=== PATIENT | male | born 1965 | race Caucasian/White ===

== ENCOUNTER 2020-06-20 05:38 | Emergency (ER) | payer OTHER ==
[~2020-06-20] VITALS: Ht 180.3 cm; Wt 99.8 kg
[~2020-06-20 05:38] MED LIST: ALPRAZOLAM0.5 MG PO; CELEXA40 MG PO; CLONAZEPAM1 MG PO; CYCLOBENZAPRINE10 MG PO; FLUOXETINE HCL10 MG PO; GABAPENTIN300 MG PO; METFORMIN HCL500 MG PO; NORCO 5-325 TA1 EACH PO; OXYCODONE HCL5 MG PO; TUSSIN DM SYRU120 ML PO; ZITHROMAX250 MG PO
[2020-06-20] MEDS ORDERED: CLONAZEPAM2 MG GT (05:58)
[2020-06-20] MEDS ORDERED: ALPRAZOLAM0.5 MG PO (05:59)
== END 2020-06-20 08:42 | disposition home or self-care (01) ==
LOC: ED 05:38
DX: T14.8XXA Other injury of unspecified body region, initial encounter (principal); E11.65 Type 2 diabetes mellitus with hyperglycemia; F17.200 Nicotine dependence, unspecified, uncomplicated; Z88.8 Allergy status to other drugs, medicaments and biological substances; Z79.899 Other long term (current) drug therapy; V59.9XXA Occupant (driver) (passenger) of pick-up truck or van injured in unspecified traffic accident, initial encounter
CPT/HCPCS: 70450; 71045; 71260; 72125; 73110; 74177; 80053; 81001; 82150; 82550; 83690; 85025; 86850; 86900; 86901; 96375; 99284-25; J1170; J2405; Q9967

== ENCOUNTER 2021-08-29 13:44 | Emergency (ER) | payer OTHER ==
[~2021-08-29] VITALS: Ht 180.3 cm; Wt 102.8 kg
[~2021-08-29 13:44] MED LIST changes: +CLONAZEPAM2 MG GT
--- OUTSIDE RECORDS SUMMARY | 2021-08-29 13:46 | XMS ---
PreManage Notification: VIDAL BROWNE Security Attending Ambulatory Care Events No recent Security Events currently on file CRITERIA MET - PDMP CARE PROVIDERS [facility] Current PHONE: Unknown Esau has no Care Guidelines for this patient. [facility] VISIT COUNT (12 MO.) 1 [facility] [place] TOTAL 1 NOTE: Visits indicate total known visits. ED/UCC VISIT TRACKING (12 MO.) 08/29/2021 13:45 [facility] OR TYPE: Emergency COMPLAINT: - BLOOD SUGAR PROBLEMS INPATIENT VISIT TRACKING (12 MO.) No inpatient visits to display in this time frame [email or web address]
[2021-08-29] MEDS ORDERED: TRAZODONE HCL50 MG PO (14:09)
--- NOTE | 2021-09-01 13:39 | EKG ---
[facility] [address] [place] [address] Signed Normal sinus rhythm Normal ECG When compared with ECG of 30-JUL-2016 09:35, No significant change was found Confirmed by LESLYE GARCIAS MD ([id number] on 09/01/2021 1:39:13 PM Electronically Signed By: LESLYE GARCIAS MD 09/01/21 1339 PATIENT NAME: VIDAL BROWNE Electrocardiogram DATE OF : 65 PHYSICIAN: LESLYE GARCIAS MD REPORT #: [id number] REPORT IS CONFIDENTIAL AND NOT TO BE RELEASED WITHOUT AUTHORIZATION
== END 2021-08-29 16:06 | disposition home or self-care (01) ==
LOC: ED 13:44
DX: E11.65 Type 2 diabetes mellitus with hyperglycemia (principal); R07.89 Other chest pain; M19.90 Unspecified osteoarthritis, unspecified site; K50.90 Crohn's disease, unspecified, without complications; E11.9 Type 2 diabetes mellitus without complications; F17.200 Nicotine dependence, unspecified, uncomplicated; Z88.8 Allergy status to other drugs, medicaments and biological substances; Z79.899 Other long term (current) drug therapy
CPT/HCPCS: 36415; 71045; 80053; 81001; 83690; 84484; 85025; 93005; 93010; 96360; 99285-25; C9803; J7040; U0003